=== PATIENT | female | born 1980 | race Caucasian/White ===

== ENCOUNTER → 2018-11-07 | Outpatient (CLI) | payer OTHER ==
--- NOTE | 2018-11-07 10:24 | RAD ---
Examination: MRI of the left hip with contrast HISTORY: History of hip pain COMPARISON: None available TECHNIQUE: Multiplanar, multisequence MR imaging of the left hip were performed without contrast. FINDINGS: The attachment of the hamstring tendons to the ischial tuberosity grossly appears intact. The attachment of the iliopsoas tendon to the lesser trochanter, attachment of the gluteal tendons to the greater trochanter and the attachment of the rectus femoris tendon to the anterior-inferior iliac spine grossly appears intact. The left femoral head is within the acetabulum. Deformed appearance of the left femoral head with severe joint space loss identified in the left hip joint. Moderate degenerative changes identified in the left femoral head is identified. Examination limited due to motion artifact. Small hip joint effusion is identified. There is a some foreshortening of the left femoral neck could be congenital or old trauma. Subchondral cystic changes identified in the left acetabulum and left femoral head. IMPRESSION: 1. Severe degenerative changes left hip joint as described above. Electronically signed by: Castro Eduardo MD (11/07/2018 10:20 AM) [id number]
--- NOTE | 2018-11-07 10:46 | RAD ---
Examination: MRI of the right hip without contrast HISTORY: History of right hip pain COMPARISON: None available Technique: Multiplanar, multisequence MR imaging of the right hip were performed without contrast. FINDINGS: Significant motion artifact limits evaluation. There is artifact from right hip hardware which limits evaluation. The right femoral head appears to be within the acetabulum. The attachment of the hamstring tendons to the ischial tuberosity, attachment of the iliopsoas tendon to the lesser trochanter, attachment of the gluteal tendons to the greater trochanter and the attachment of the rectus femoris tendon to the anterior-inferior iliac spine grossly appears intact. There is increased T2 signal identified about the right femoral head and neck probably artifactual. There is mild increased T2 signal identified in the right femoral head and acetabular region likely mild trabecular edema.. Differentiation is difficult. Severe joint space loss identified in the right hip joint likely degeneration. IMPRESSION: 1. Right hip hardware and motion limits evaluation. Severe degenerative changes right hip joint. Consider plain film radiograph. Electronically signed by: Castro Eduardo MD (11/07/2018 10:43 AM) [email or web address]
== END | disposition home or self-care (01) ==
LOC: MRI 08:19
PROVIDERS: ATTEND Registered Nurse
DX: M16.0 Bilateral primary osteoarthritis of hip (principal); M25.452 Effusion, left hip
CPT/HCPCS: 73721